=== PATIENT | male | born 1950 | race Caucasian/White ===

== ENCOUNTER 2024-02-06 06:48 | Observation (INO) ==
[~2024-02-06 06:48] MED LIST: NS 0.45% 1000 ml BAG 1,000 ML IV SCH; Naloxone 0.4 mg VIAL 0.4 mg/ml 1 ml VIAL IV PRN
[2024-02-06] MEDS ORDERED: Ondansetron 4 mg VIAL 2 MG/ML 2 ml VIAL IV PRN (07:26)
[2024-02-06 07:28] LABS: Rapid COVID-19 Molecular Undetected (Undetected)
[2024-02-06] MEDS ORDERED: cefTRIAXone 1 gm/50 mL D5W 0 GM/0 ML BAG IV ONE (07:33)
[2024-02-06] MEDS ORDERED: Sevoflurane BOTTLE ONE (07:35)
[2024-02-06] MEDS ORDERED: cefTRIAXone 2 gm/50 mL D5W 2 GM/50 ML BAG IV ONE (07:36)
[2024-02-06] MEDS: NS 0.9% 1000 ml BAG 1,000 ML IV SCH (07:37)
[2024-02-06] MEDS: Buffered Lidocaine 1% SYRIN 1 ml INTRADERM ONE (07:42)
[2024-02-06] MEDS ORDERED: Lidocaine 2% PF 5 ML VIAL ONE (07:43)
[2024-02-06] MEDS ORDERED: Propofol 10 MG/ML 20 ML BTL ONE (07:43)
[2024-02-06] MEDS ORDERED: Ondansetron 4 mg VIAL 2 MG/ML 2 ml VIAL ONE ×2 (07:44→13:10)
[2024-02-06] MEDS ORDERED: Dexamethasone IV 4 MG/ML VIAL 1 ml VIAL ONE (07:44)
[2024-02-06] MEDS ORDERED: Rocuronium 50 mg VIAL 10 mg/ml 5 ml VIAL (50 mg) ONE ×3 (07:44→11:40)
[2024-02-06] MEDS ORDERED: Bupivacaine 0.25% SDV 30 ML ONE (08:17)
[2024-02-06] MEDS ORDERED: fentaNYL 100 mcg/2 ml 50 MCG/ML VIAL ONE ×2 (08:18→13:10)
[2024-02-06] MEDS ORDERED: HYDROmorphone 0.5 MG/0.5 ML SYRINGE ONE ×2 (08:19→11:49)
[2024-02-06] MEDS ORDERED: Midazolam 2 mg/2 ml VIAL 1 mg/ml 2 ml VIAL (2 mg) ONE (08:23)
[2024-02-06] MEDS ORDERED: Phenylephrine 40 mcg/mL 10mL (400mcg) SYRINGE ONE (09:06)
[2024-02-06] MEDS ORDERED: Phenylephrine IV 10 MG/ML 1 ml VIAL ONE (10:02)
[2024-02-06 12:21] LABS: HIV 4th Generation Nonreactive (Nonreactive)
[2024-02-06 12:29] LABS: Hepatitis C Antibody Negative (Negative)
[2024-02-06] MEDS: Ondansetron 4 mg VIAL 2 MG/ML 2 ml VIAL IV PRN (13:12)
[2024-02-06] MEDS: fentaNYL 100 mcg/2 ml 50 MCG/ML VIAL IV PRN (13:23)
[2024-02-06] MEDS ORDERED: Metoclopramide 5 MG/ML VIAL (10 mg) ONE (13:51)
[2024-02-06] MEDS: Metoclopramide 5 MG/ML VIAL (10 mg) IV SLOW PU ONE (13:52)
[2024-02-06 14:48] LABS: ABS Monocytes 0.2 10^3/uL (0.0-1.1); ABS Neutrophils 14.9 10^3/uL (1.5-7.6); ABS Nucleated RBC 0.04 10^3/ul; Eosinophil % 0.1 %; Hematocrit 42.5 % (38-53); Mean Corpuscular Hemoglobin 31.3 pg (27-33); Mean Corpuscular Volume 94.8 fL (80-97); Mean Platelet Volume 9.9 fL (7.5-11.2); Nucleated Red Blood Cells % 0.2 %/100WBC (0.0-0.8); Platelet Count 174 10^3/uL (150-450); Red Blood Count 4.48 10^6/uL (4.06-5.63); Red Cell Distribution Width 14.7 % (12-17); White Blood Count 16.1 10^3/uL (3.6-10.2)
[2024-02-06 15:00] LABS: Calcium 8.4 mg/dL (8.6-10.3); Creatinine, Serum 1.16 mg/dL (0.67-1.17); Potassium 5.1 mmol/L (3.5-5.0); eGFR CKD-EPI 67.3 (>60)
[2024-02-06] MEDS: Lactated Ringers 1000 ml BAG 1,000 ML IV SCH (15:35)
[2024-02-06] MEDS: Acetaminophen IV 1 GM/100ML 1,000 MG/100 ML BAG IV ONE (15:35)
[2024-02-06] MEDS: [UNRECOGNIZED DRUG - REMARK] PO SCH (15:36)
[2024-02-06] MEDS: BUPIVACAINE **LIPOSOME/PF 13.3 MG/ML (266MG/ 20ML) VIAL (RESTRICTED) INFIL ONE (15:36)
[2024-02-06] MEDS: Neomycin/Polym/Bacit TOP OINT 15 GM TOPICAL SCH (17:16)
[2024-02-06] MEDS: Magnesium Hydroxide LIQ 30 ML UDC PO SCH (21:12)
[2024-02-07 07:50] LABS: ABS Lymphocytes 1.5 10^3/uL (1.0-4.8); ABS Monocytes 1.1 10^3/uL (0.0-1.1); ABS Neutrophils 7.8 10^3/uL (1.5-7.6); Eosinophil % 0.1 %; Hematocrit 36.9 % (38-53); Hemoglobin 12.5 g/dL (13.2-16.3); Lymphocyte % 14.4 %; Mean Corpuscular Hemoglobin 31.9 pg (27-33); Mean Corpuscular Hgb Conc 33.8 g/dL (31-36); Mean Corpuscular Volume 94.2 fL (80-97); Mean Platelet Volume 9.9 fL (7.5-11.2); Platelet Count 142 10^3/uL (150-450); Red Blood Count 3.92 10^6/uL (4.06-5.63); Red Cell Distribution Width 14.3 % (12-17); White Blood Count 10.4 10^3/uL (3.6-10.2)
[2024-02-07 07:53] LABS: Calcium 7.8 mg/dL (8.6-10.3); Creatinine, Serum 1.11 mg/dL (0.67-1.17); Potassium 4.7 mmol/L (3.5-5.0)
[2024-02-07 14:19] VITALS: BP 120/82
== END 2024-02-07 13:50 | disposition home or self-care (01) ==
LOC: INTOOBSV 06:48 → AA 06:48 → SSU 15:20
PROVIDERS: ADMIT Urology; ATTEND Urology